=== PATIENT | female | born 1960 ===

== ENCOUNTER 2024-08-09 05:18 | Day surgery (SDC) | payer OTHER ==
[2024-08-05 16:41] VITALS: BP 170/84
[~2024-08-09] VITALS: Ht 170.2 cm; Wt 102.1 kg
== END 2024-08-09 13:25 | disposition home or self-care (01) ==
LOC: CIR.AMB 05:18
PROVIDERS: ATTEND Internal Medicine
DX: C20 Malignant neoplasm of rectum (principal); D37.4 Neoplasm of uncertain behavior of colon; K63.5 Polyp of colon